=== PATIENT | female | born 1990 | race Two or more races ===

== ENCOUNTER 2020-10-07 05:52 | Emergency (ER) | payer SELFPAY ==
[~2020-10-07] VITALS: Ht 162.6 cm; Wt 54.4 kg
--- NOTE | 2020-10-07 06:01 | NUR ---
PT SIVA FROM THE STREETS, PER REPORT, BYSTANDER ASSUMED THE PT WAS HAVING A SEIZURE. ON SCENE, PT WAS LYING IN THE MIDDLE OF THE PARKING LOT. PT [id number], VSS. PT DENIES ANY MEDICAL COMPLAINTS AT THIS TIME. PT CONNECTED TO THE PATIENT ACCOUNT ANALYST AND POX
[2020-10-07] MEDS ORDERED: LORAZEPAM INJ 2 MG/ML VIAL ONE (06:09)
[2020-10-07] MEDS ORDERED: OLANZAPINE 10 MG VIAL IM ONE ×2 (06:19→06:30)
--- NOTE | 2020-10-07 06:23 | NUR ---
BLOOD COLLECTED AND SENT TO LAB
--- NOTE | 2020-10-07 06:23 | NUR ---
PT UNABLE TO PROVIDE URINE AT THIS TIME Addendum: 10/07/20 at [address] KAELA AUGUSTE AWARE
[2020-10-07 06:26] LABS: BASOPHILS # (AUTO) 0.1 /CMM (0.0-0.2); BASOPHILS % (AUTO) 0.5 % (0.0-2.0); EOSINOPHILS % (AUTO) 5.2 % (0.0-6.0); HEMATOCRIT 40 % (33-45); HEMOGLOBIN 12.6 g/dL (11.5-14.8); LYMPHOCYTES # (AUTO) 1.4 /CMM (0.8-4.8); LYMPHOCYTES % (AUTO) 13.3 % (20.0-44.0); MEAN CORPUSCULAR HGB CONC 31 g/dl (31.0-36.0); MEAN CORPUSCULAR VOLUME 73 fL (82-100); MONOCYTES # (AUTO) 1.3 /CMM (0.1-1.30); NEUTROPHILS # (AUTO) 7.2 /CMM (1.8-8.9); PLATELET COUNT (AUTO) 340 /CMM (150-450); RED BLOOD CELL COUNT(AUTO) 5.53 MIL/uL (4.0-5.2); WHITE BLOOD COUNT (AUTO) 10.5 K/uL (4.3-11.0)
[2020-10-07] MEDS ORDERED: LORAZEPAM INJ 2 MG/ML VIAL IV ONE (06:30)
[2020-10-07 06:36] LABS: CALCIUM, SERUM 8.8 mg/dL (8.5-10.1); CARBON DIOXIDE 27 mmol/L (21-32); CHLORIDE 103 mmol/L (98-107); CREATININE 0.8 mg/dL (0.6-1.3); GLUCOSE 78 mg/dL (74-106); POTASSIUM 3.9 mmol/L (3.5-5.1); SODIUM SERUM 139 mmol/L (136-145); UREA NITROGEN, BLOOD 9 mg/dL (7-18)
[2020-10-07 06:43] LABS: ALANINE AMINOTRANSFERASE 29 U/L (12-78); ALBUMIN 3.6 g/dL (3.4-5.0); ALCOHOL, BLOOD < 3 mg/dL (0-0); ALKALINE PHOSPHATASE 93 U/L (46-116); ASPARTATE AMINOTRANSFERASE 27 U/L (15-37); BILIRUBIN,DIRECT 0.1 mg/dL (0.0-0.2); BILIRUBIN,TOTAL 0.3 mg/dL (0.2-1.0); TOTAL PROTEIN, SERUM 7.9 g/dL (6.4-8.2)
[2020-10-07 06:45] LABS: ACETAMINOPHEN 0 ug/ml (10-30)
--- NOTE | 2020-10-08 00:01 | NUR ---
Patient discharged to home in stable condition. Written and verbal after care instructions given. Patient verbalizes understanding of instruction.
--- NOTE | 2020-10-08 00:03 | NUR ---
PATIENT IS AMBULATORY WITH A STEADY GAIT. PATIENT IS PROVIDED WITH FOOD, JUICE, AND WATER. PATIENT IS MEDICALLY CLEARED BY THE DOCTOR.
[2020-10-08 00:16] VITALS: BP 113/68
== END 2020-10-08 00:17 | disposition home or self-care (01) ==
LOC: ER 05:54 → EDBD 05:54 → ER 10-08 00:17
DX: F29 Unspecified psychosis not due to a substance or known physiological condition (principal)
CPT/HCPCS: 36415; 70450; 80048; 80076; 80299; 80320; 84702; 85025; 96374; 99284; J2060; G0480; J3490